=== PATIENT | male | born 1985 | race Caucasian/White ===

== ENCOUNTER → 2021-08-18 | Outpatient (CLI) | payer OTHER ==
--- NOTE | 2021-08-18 14:15 | CT ---
EXAMINATION TYPE: CT lumbar spine w con DATE OF EXAM: 08/18/2021 COMPARISON: None HISTORY: recent L5-S1 sx CT DLP: 467.70 mGycm Automated exposure control for dose reduction was used. CONTRAST: CT scan of the lumbar is performed with IV Contrast, patient injected with 100 mL of Isovue 300. Enhanced CT of the lumbar spine was performed. Bone and soft tissue window settings are submitted as well as coronal and sagittal reconstructions. Findings: There are postsurgical changes of posterior and anterior metallic fusion at the L5-S1 level. The lumbar vertebral segments are normal in height and alignment. The disc spaces from L1 through L5 are normal in height. The bony spinal canal no lumbar region is widely patent. The paraspinal soft tissues are normal. IMPRESSION: 1. Postsurgical changes of fusion at the L5-S1 level. 2. No other significant abnormality seen. There is no lumbar spine fracture or malalignment.
== END | disposition home or self-care (01) ==
LOC: RADCTMAIN 12:37
PROVIDERS: ATTEND Orthopaedic Surgery
DX: M51.26 Other intervertebral disc displacement, lumbar region (principal); M54.9 Dorsalgia, unspecified
CPT/HCPCS: 72132; Q9967